=== PATIENT | male | born 1985 | race Hispanic/Latino ===

== ENCOUNTER 2022-10-02 16:26 | Emergency (ER) | payer OTHER, SELFPAY ==
--- NOTE | ~2022-10-02 | XR_ITS ---
EXAM: XR ankle RT min 3V DATE: 10/02/2022 17:48 HISTORY: MEDIAL ANKLE PAIN AFTER FALL . COMPARISON: None available. FINDINGS: Normal mineralization. No fracture or dislocation. No lytic or blastic lesion. Achilles an d plantar enthesopathy. Mild degenerative change at the tibiotalar joint.. No erosion or periosteal c hange. Soft tissues within normal limits. IMPRESSION: No acute osseous finding in the right ankle. Reviewed, dictated and finalized at location K.
[2022-10-02 16:59] VITALS: BP 150/82; PULSE 80; RESP 20; TEMP 37.3; O2SAT 100
--- NOTE | 2022-10-02 17:23 | ED.LOWEXIN ---
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 Around 11:00 a.m. he was caring and heavy object and caught his foot in a metal grate, twisting it. Currently rates his pain 10/10, which increases with weight-bearing. He has been taking an anti-inflammatory at home with some relief. Related Data Allergies Allergy/AdvReac Type Severity Reaction Status Date / Time No Known Allergies Allergy Verified 10/02/22 16:55 Review of Systems Review of Systems: CONSTITUTIONAL: Denies body aches, fever, chills, or sweats. EYES: Denies visual changes, redness, or discharge. ENT: Denies rhinorrhea, congestion, sore throat, or otalgia. CARDIOVASCULAR: Denies chest pain, palpitations, or edema. RESPIRATORY: Denies cough or dyspnea. GASTROINTESTINAL: Denies abdominal pain, nausea, vomiting, or diarrhea. GENITOURINARY: Denies dysuria or hematuria. SKIN: Denies rash, itching, or wounds. MUSCULOSKELETAL: Denies back pain, or myalgia.+ right ankle pain NEUROLOGIC: Denies headache, numbness, tingling, or weakness. PSYCH: Denies depression or anxiety. PMFSH Comments At time of signature, I have reviewed and agree with nursing past medical, surgical, social and family history unless otherwise noted. Please see nursing chart for further information. There is no relevant family history pertinent to the presenting complaint Exam Narrative: GENERAL: Well-appearing, well-nourished, and in no acute distress. HEAD: Normocephalic, atraumatic. EYES: EOMI. No redness or drainage. Conjunctivae normal. ENT: Mucous membranes pink and moist. NECK: Normal AROM. CHEST: No respiratory distress. EXTREMITIES: Right ankle: Tenderness to the medial ankle with mild edema. No tenderness laterally. Distal sensation intact. Capillary refill normal. Pedal pulse normal. Pain with passive range of motion. SKIN: Warm, dry, no rash. Capillary refill normal. Normal skin turgor. NEURO: No focal deficits. Alert and oriented x3. Gait steady. PSYCH: Normal affect. No signs of depression or anxiety. Course Course Level of Care: Express Care Visit Vital Signs Vital signs: Vital Signs Temperature 99.1 F 10/02/22 16:59 Pulse Rate 80 10/02/22 16:59 Respiratory Rate 20 10/02/22 16:59 Blood Pressure 150/82 H 10/02/22 16:59 Pulse Oximetry 100 10/02/22 16:59 Oxygen Delivery Room Air 10/02/22 16:59 Temperature 99.1 F 10/02/22 16:59 Pulse Rate 80 10/02/22 16:59 Respiratory Rate 20 10/02/22 16:59 Blood Pressure 150/82 H 10/02/22 16:59 Pulse Oximetry 100 10/02/22 16:59 Oxygen Delivery Room Air 10/02/22 16:59 Reviewed. Pt has been instructed to follow up with his PCP regarding his elevated blood pressure today. MDM - Extremity Injury (Lower) MDM Narrative Medical decision making narrative: No fracture noted upon my review of x-ray. Patient requesting prescription for anti-inflammatory. Will send prescription for diclofenac to pharmacy. Offered Mario wrap, but patient prefers to wear his own brace. Anticipatory guidance given. Differential Diagnosis Differential diagnosis: Likely ankle sprain and strain and ankle fracture Imaging Data Attestation: I personally reviewed and interpreted this imaging study as follows: My impression: No fracture. PACS system down. Waiting on radiology read. Critical Care Time Critical Care Time Critical Care Time: No Discharge Plan Discharge Clinical Impression: Right ankle sprain Patient Disposition: Home, Self-Care Condition: Stable Instructions: Ankle Sprain (DC) Additional Instructions: Damian radiograf?a es negativa para fractura. Eleve y
== END 2022-10-02 17:32 | disposition home or self-care (01) ==
PROVIDERS: Emergency Provider Nurse Practitioner
DX: S93.401A Sprain of unspecified ligament of right ankle, initial encounter (principal); X58.XXXA Exposure to other specified factors, initial encounter
CPT/HCPCS: 73610; 99203; G0463